=== PATIENT | male | born 1945 ===

== ENCOUNTER 2018-02-01 16:16 | Emergency (ER) | payer OTHER, MEDICARE ==
[2018-02-01 17:41] LABS: ABSOLUTE BASOPHIL COUNT 0 /CUMM (0.0-0.2); ABSOLUTE EOSINOPHIL COUNT 0.1 /CUMM (0.0-0.7); ABSOLUTE GRANULOCYTE CT 7.7 /CUMM (1.4-6.5); ABSOLUTE MONOCYTE COUNT 0.9 /CUMM (0.10-0.60); BASOPHIL % 0.3 % (0.0-2.0); EOSINOPHIL % 1.2 % (0-5); GRANULOCYTE % 71.4 % (42.2-75.2); HEMATOCRIT 44.1 % (42-52); MEAN CORPUSCULAR HGB 30.1 PG (27.0-31.0); MEAN CORPUSCULAR HGB CONC 32.7 G/DL (33.0-37.0); MEAN CORPUSCULAR VOLUME 92.2 FL (80.0-94.0); MEAN PLATELET VOLUME 9.3 FL (7.4-10.4); PLATELET COUNT 204 /CUMM (130-400); RBC DISTRIBUTION WIDTH 15.2 % (11.5-14.5); RED BLOOD CELL CT 4.78 /CUMM (4.70-6.10); WHITE BLOOD CELL COUNT 10.7 /CUMM (4.8-10.8)
--- NOTE | 2018-02-01 18:28 | RADIOLOGY REPORT ---
EXAMINATION: XR CHEST CLINICAL INFORMATION: Coughing mucus. COMPARISON: None TECHNIQUE: 2 views of the chest were obtained. FINDINGS: There is cardiomegaly but no evidence of CHF. There is some increased patchy density seen in the left retrocardiac region (left lower lobe) with some indistinctness of the left hemidiaphragm which could represent atelectasis or an early infiltrate. The right lung is clear. A pacemaker/defibrillator is present with 3 leads. No pleural effusions are present. The bony thorax is unremarkable. IMPRESSION: Cardiomegaly without CHF. Possible area of infiltrate in the posterior basal segment, left lower lobe.
[2018-02-01 19:40] VITALS: BP 118/72
--- NOTE | 2018-02-01 19:40 | ED DYSPNEA/ASTHMA COMPLAINT ---
History of Present Illness General Chief Complaint: General Adult Stated Complaint: COUGH Source: patient Exam Limitations: no limitations Vital Signs & Intake/Output Vital Signs & Intake/Output Vital Signs Date Time Temp Pulse Resp B/P B/P Pulse O2 O2 Flow FiO2 Mean Ox Delivery Rate 02/02 1940 Room Air 02/02 1940 97.9 75 20 118/72 95 Room Air 02/01 1643 108/73 02/01 1637 98.3 74 16 96 Room Air ED Intake and Output 02/02 0000 02/01 1200 Intake Total 0 Output Total Balance 0 Intake, Oral 0 Patient 238 lb Weight Weight Reported by Patient Measurement Method Allergies Coded Allergies: No Known Allergies (02/01/18) Reconcile Medications Albuterol Sulfate (Ventolin Hfa) 90 MCG HFA.AER.AD 2 PUF INH Q4-6 PRN PRN WHEEZE Benzonatate (Tessalon Perle) 100 MG CAPSULE 1 CAP PO TID PRN COUGH Levofloxacin (Levaquin) 500 MG TABLET 1 TAB PO DAILY PNEUMONIA Triage Note: PT TO ED WITH C/O PROD COUGH, RUNNY NOSE FOR 7 DAYS. DENIES FEVERS, CP. STATES SYMPTOMS BEGAN WHILE ON A 7 DAY CRUISE. Triage Nurses Notes Reviewed? yes Onset: Gradual Duration: week(s):, unknown duration Timing: recent history Severity: moderate Activities at Onset: none Modifying Factors: Improves With: rest. Associated Symptoms: cough HPI: 72 yo gentleman in prior good heatlh presents with cough, productive of green and yellow phlegm without shortness of breath, fever. "I just flew back from a cruise in the [facility]." He notes no chest pain, shortness of breath, dizziness, diaphoresis. He is otherwise well. Past History Travel History Traveled to [place] past 21 day No Medical History Any Pertinent Medical History? see below for history Cardiovascular: hypertension Surgical History Surgical History: none Psychosocial History What is your primary language Khmer Tobacco Use: Never used Family History Hx Contributory? No Review of Systems Review of Systems Constitutional: Reports: no symptoms. EENTM: Reports: no symptoms. Respiratory: Reports: no symptoms. Cardiovascular: Reports: no symptoms. GI: Reports: no symptoms. Genitourinary: Reports: no symptoms. Musculoskeletal: Reports: no symptoms. Skin: Reports: no symptoms. Neurological/Psychological: Reports: no symptoms. Hematologic/Endocrine: Reports: no symptoms. Immunologic/Allergic: Reports: no symptoms. All Other Systems: Reviewed and Negative Physical Exam Physical Exam General Appearance: no apparent distress Head: atraumatic, normal appearance, active bleeding Eyes: Bilateral: normal appearance, PERRL, EOMI. Ears, Nose, Throat: normal pharynx, normal ENT inspection Neck: normal inspection, supple, full range of motion Respiratory: normal breath sounds, chest non-tender, no respiratory distress, minimal rhonchi Cardiovascular: regular rate/rhythm, edema Gastrointestinal: normal bowel sounds, soft, non-tender Extremities: normal inspection, normal capillary refill Neurologic/Psych: no motor/sensory deficits, awake, alert, oriented x 3 Skin: intact, normal color, warm/dry Core Measures ACS in differential dx? No CVA/TIA Diagnosis No Sepsis Present: No Sepsis Focused Exam Completed? No Progress Differential Diagnosis: asthma, bronchitis, pneumonia Plan of Care: Orders Procedure Date/time Status TROPONIN LEVEL 02/01 164 Complete COMPREHENSIVE METABOLIC PANEL 02/01 164 Complete CBC WITHOUT DIFFERENTIAL 02/01 164 Complete B-TYPE NATRIURETIC PEP (BNP) 02/01 164 Complete EKG 02/01 1641 Active Laboratory Tests 02/01/18 1718: Anion Gap 7, Estimated GFR > 60, BUN/Creatinine Ratio 15.5, Glucose 95, Calcium 9.3, Total Bilirubin 0.8, AST 34, ALT 42, Alkaline Phosphatase 73, Troponin I < 0.01, Dpu-H-Zrbkeneefuq Pept 1630 H, Total Protein 6.8, Albumin 3.8, Globulin 3.0, Albumin/Globulin Ratio 1.3, CBC w Diff NO MAN DIFF REQ, RBC 4.78, MCV 92.2, MCH 30.1, MCHC 32.7 L, RDW 15.2 H, MPV 9.3, Gran % 71.4, Lymphocytes % 18.6 L , Monocytes % 8.5, Eosinophils % 1.2, Basophils % 0.3, Absolute Granulocytes 7.7 H, Absolute Lymphocytes 2.0, Absolute Monocytes 0.9 H, Absolute Eosinophils 0.1, Absolute Basophils 0 Diagnostic Imaging: Viewed by Me: Radiology Read. Discussed w/RAD: Radiology Read. CXR Impression: PATIENT: OMKAR WEBER PRESENT AGE: 72 PATIENT ACCOUNT NO: [id number] : [birth year] LOCATION: [facility] ORDERING PHYSICIAN: Michael ALANIZ SERVICE DATE: 02/01/18 EXAM TYPE: RAD - XRY-CHEST XRAY, TWO VIEWS EXAMINATION: XR CHEST CLINICAL INFORMATION: Coughing mucus. COMPARISON: None TECHNIQUE: 2 views of the chest were obtained. FINDINGS: There is cardiomegaly but no evidence of CHF. There is some increased patchy density seen in the left retrocardiac region (left lower lobe) with some indistinctness of the left hemidiaphragm which could represent atelectasis or an early infiltrate. The right lung is clear. A pacemaker/defibrillator is present with 3 leads. No pleural effusions are present. The bony thorax is unremarkable. IMPRESSION: Cardiomegaly without CHF. Possible area of infiltrate in the posterior basal segment, left lower lobe. DICTATED BY: Carlos Muñoz MD DATE/ TIME DICTATED:02/01/181811 DATA PROCESSING MANAGER:GEORGE DATE/TIME TRANSCRIBED: 02/01/181811 CONFIDENTIAL, DO NOT COPY WITHOUT APPROPRIATE AUTHORIZATION. < Electronically signed in Other Vendor System> SIGNED BY: Carlos Muñoz MD 02/01/181827 Initial ED EKG: sinus, no acute changes. Departure Departure Disposition: HOME OR SELF CARE Condition: Stable Clinical Impression Primary Impression: Pneumonia Referrals: [place] BURGESS,Perez Jain (PCP/Family) Departure Forms: Customer Survey General Discharge Information Prescriptions: Current Visit Scripts Levofloxacin (Levaquin) 1 TAB PO DAILY #10 TAB Benzonatate (Tessalon Perle) 1 CAP PO TID PRN COUGH #30 CAP Albuterol Sulfate (Ventolin Hfa) 2 PUF INH Q4-6 PRN PRN WHEEZE #1 INHAL Comments 02/01/18, 7:59PM... pt feeling well in the ED... on room air, well appearing on exam... gave rx of levaquin... other to follow.... ... close follow up advised. Critical Care Note Critical Care Note Critical Care Time: non-applicable
[2018-02-01] MEDS ORDERED: TESSALON PERLE100 M1 PO (19:59)
[2018-02-01] MEDS ORDERED: LEVAQUIN500 M1 PO (19:59)
[2018-02-01] MEDS ORDERED: VENTOLIN HFA18 GM INH (19:59)
== END 2018-02-01 20:02 ==
LOC: ERH 16:16
PROVIDERS: Physician Assistant Medical
DX: J18.9 Pneumonia, unspecified organism (principal); R05 Cough; R06.02 Shortness of breath; R50.9 Fever, unspecified; I10 Essential (primary) hypertension
CPT/HCPCS: 71046; 93005; 93010